=== PATIENT | male | born 1995 | race Caucasian/White ===

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

== ENCOUNTER 2017-06-24 15:11 | Emergency (ER) | payer BC ==
[~2017-06-24] VITALS: Ht 172.7 cm; Wt 59.1 kg
[2017-06-24 15:33] VITALS: TEMP 98.1
[2017-06-24 15:39] LABS: COLLECTION METHOD CLEAN CATCH
[2017-06-24] MEDS ORDERED: PULMOZYME2.5 MG/2.5 IH (15:39)
[2017-06-24] MEDS ORDERED: FLONASE NASAL S16 GM NS (15:39)
[2017-06-24] MEDS ORDERED: ALBUTEROL0.83 MG/ML IH (15:39)
[2017-06-24 15:47] LABS: MUCOUS Present /lpf; PH 5 (5-8); SQUAMOUS EPITHELIAL None Seen /hpf; URINE APPEARANCE Hazy; URINE BACTERIA None Seen /hpf; URINE BILIRUBIN Negative (NEGATIVE); URINE BLOOD 3+ (NEGATIVE); URINE CALCIUM OXALATE CRYSTAL Present /hpf; URINE COLOR Yellow; URINE GLUCOSE Negative (NEGATIVE); URINE KETONE Negative (NEGATIVE); URINE LEUKOCYTE ESTERASE Negative (NEGATIVE); URINE NITRATE Negative (NEGATIVE); URINE PROTEIN(semi-quant) 1+ (NEGATIVE); URINE RBC >50 /hpf; URINE UROBILINOGEN Negative (NEGATIVE)
[2017-06-24 15:49] LABS: BASO % 0.4 % (0.0-2.0); EOS % 0.4 % (0-4.0); GRAN # 9.8 (1.4-6.5); GRAN % 86.6 % (42.2-75.2); HEMATOCRIT 43.4 % (36.0-47.0); HEMOGLOBIN 14.2 g/dl (12.5-16.1); LYMPH # 0.6 (1.2-3.4); LYMPH % 4.9 % (20.0-51.0); MEAN CELL VOLUME 83 fl (80.0-95.0); MEAN CORPUSCULAR HEMOGLOBIN 27 pg (26.0-32.0); MEAN CORPUSCULAR HGB CONC 33 g/dl (33.0-37.0); MEAN PLATELET VOLUME 10.4 fl (7.4-10.4); MONO # 0.8 (0.1-0.6); MONO % 7.3 % (1.7-9.3); PLATELET COUNT 354 K/mm3 (130-400); RED BLOOD COUNT 5.21 M/mm3 (4.20-5.60); REDCELL DISTRIBUTION WIDTH-CV 14.4 % (11.5-14.5)
[2017-06-24 15:55] LABS: ALBUMIN 3.7 gm/dL (3.5-5.0); BILIRUBIN,TOTAL 0.3 mg/dL (0.0-1.0); C-REACTIVE PROTEIN 1.4 mg/dL (0.0-0.9); CALCIUM 8.8 mg/dL (8.4-10.2); CREATININE, serum 0.84 mg/dL (0.66-1.25); POTASSIUM 4.2 mmol/L (3.4-5.0); TOTAL PROTEIN 7.5 gm/dL (6.4-8.2)
[2017-06-24] MEDS ORDERED: NORCO 325 MG-51 TAB PO (16:42)
[2017-06-24 16:56] VITALS: BP 131/90; PULSE 98
== END 2017-06-24 16:57 | disposition home or self-care (01) ==
LOC: COL.ER 15:11
PROVIDERS: Nurse Practitioner
DX: N20.1 Calculus of ureter (principal); E84.9 Cystic fibrosis, unspecified
CPT/HCPCS: Q9967

== ENCOUNTER 2018-02-02 11:59 | Emergency (ER) | payer BC ==
[~2018-02-02] VITALS: Ht 172.7 cm; Wt 54.5 kg
[~2018-02-02 11:59] MED LIST changes: +ALBUTEROL0.83 MG/ML IH; +FLONASE NASAL S16 GM NS; +NORCO 325 MG-51 TAB PO; +PULMOZYME2.5 MG/2.5 IH
[2018-02-02 12:05] VITALS: BP 131/91; TEMP 97.7
[2018-02-02 12:45] LABS: COLLECTION METHOD CLEAN CATCH
[2018-02-02 13:06] LABS: MUCOUS Present /lpf; PH 5 (5-8); SQUAMOUS EPITHELIAL 0-2 /hpf; URINE APPEARANCE Hazy; URINE BACTERIA None Seen /hpf; URINE BILIRUBIN Negative (NEGATIVE); URINE BLOOD 3+ (NEGATIVE); URINE CALCIUM OXALATE CRYSTAL Present /hpf; URINE COLOR Yellow; URINE GLUCOSE Negative (NEGATIVE); URINE KETONE Negative (NEGATIVE); URINE LEUKOCYTE ESTERASE Negative (NEGATIVE); URINE NITRATE Negative (NEGATIVE); URINE PROTEIN(semi-quant) 1+ (NEGATIVE); URINE RBC >50 /hpf
[2018-02-02 13:50] VITALS: PULSE 78
== END 2018-02-02 13:55 | disposition home or self-care (01) ==
LOC: COL.ER 11:59
DX: R10.9 Unspecified abdominal pain (principal)
CPT/HCPCS: J1885; J7030

== ENCOUNTER → 2018-03-18 | Outpatient (CLI) | payer BC | LOC: COL.PUL 12:03 | DX: E84.0 Cystic fibrosis with pulmonary manifestations (principal) ==